=== PATIENT | male | born 1945 | race Caucasian/White ===

== ENCOUNTER 2017-07-24 19:49 | Emergency (ER) | payer MEDICARE, OTHER ==
[~2017-07-24] VITALS: Ht 172.7 cm; Wt 77.8 kg
[2017-07-24 19:52] VITALS: BP 165/86
== END 2017-07-24 21:51 | disposition home or self-care (01) ==
LOC: ER 19:49
DX: T83.091A Other mechanical complication of indwelling urethral catheter, initial encounter (principal); R33.9 Retention of urine, unspecified
CPT/HCPCS: 99284; A4315

== ENCOUNTER 2017-10-01 08:10 | Day surgery (SDC) | payer OTHER, MEDICARE ==
[~2017-10-01] VITALS: Ht 172.7 cm; Wt 76.9 kg
[2017-10-01] VITALS (13 sets, daily range): BP systolic 136–154; BP diastolic 71–92
[2017-10-01] MEDS ORDERED: normal saline 1000ml 1,000 ML IV PRN (09:05)
[2017-10-01] MEDS ORDERED: ATOR40TA3 PO (09:11)
[2017-10-01] MEDS ORDERED: OMEP40CA37 PO (09:11)
[2017-10-01] MEDS ORDERED: ASPI81TA52 PO (09:11)
[2017-10-01] MEDS ORDERED: LANTUS SQ (09:11)
[2017-10-01] MEDS ORDERED: INSU100C4 SQ (09:11)
[2017-10-01 09:19] LABS: BASOPHILS # (AUTO) 0.1 X10'3 (0-0.2); BASOPHILS % (AUTO) 0.7 % (0-1); EOSINOPHILS # (AUTO) 0.5 X10'3 (0-0.9); EOSINOPHILS % (AUTO) 6.5 % (0-6); HEMATOCRIT 39.3 % (42.0-52.0); HEMOGLOBIN 13.3 g/dl (14.0-17.9); LYMPHOCYTES % (AUTO) 25.7 % (21-51); MEAN CORPUSCULAR HEMOGLOBIN 28.9 PG (27.0-31.0); MEAN CORPUSCULAR HGB CONC 33.9 % (33.0-36.5); MEAN CORPUSCULAR VOLUME 85.3 FL (78-98); MEAN PLATELET VOLUME 9.3 FL (7.4-10.4); MONOCYTES # (AUTO) 0.5 X10'3 (0-0.9); MONOCYTES % (AUTO) 6.5 % (2-12); NEUTROPHILS # (AUTO) 4.7 X10'3 (1.8-7.7); NEUTROPHILS % (AUTO) 60.6 % (42-75); PLATELET COUNT 229 X10'3 (140-440); RED BLOOD COUNT 4.61 X10'6 (4.70-6.10); RED CELL DISTRIBUTION WIDTH 14.2 % (11.5-14.5); WHITE BLOOD COUNT 7.8 X10'3 (4.5-11.0)
[2017-10-01] MEDS ORDERED: LIDOcaine 1%/PF (10mg/ml) 5ml vial SQ ONE (10:20)
[2017-10-01] MEDS ORDERED: fentaNYL/PF 50MCG/1 ML 2ML syringe IV PRN (10:20)
[2017-10-01] MEDS ORDERED: midazolam 2 mg/2 ml injection IV PRN (10:20)
[2017-10-01] MEDS ORDERED: midazolam 2 mg/2 ml injection ONE (10:33)
[2017-10-01] MEDS ORDERED: fentaNYL/PF 50MCG/1 ML 2ML syringe ONE (10:33)
[2017-10-01] MEDS ORDERED: HYDROcodone/acetaminophen 5mg/325mg tablet PO PRN (11:15)
== END 2017-10-01 12:40 | disposition home or self-care (01) ==
LOC: SSTAY O 08:10
PROVIDERS: ATTEND Radiology Diagnostic Radiology
DX: R19.07 Generalized intra-abdominal and pelvic swelling, mass and lump (principal); E11.9 Type 2 diabetes mellitus without complications; E78.5 Hyperlipidemia, unspecified; K21.9 Gastro-esophageal reflux disease without esophagitis; Z90.49 Acquired absence of other specified parts of digestive tract; Z79.4 Long term (current) use of insulin; Z79.82 Long term (current) use of aspirin; Z87.891 Personal history of nicotine dependence; Z85.72 Personal history of non-Hodgkin lymphomas; Z79.899 Other long term (current) drug therapy; Z98.890 Other specified postprocedural states
CPT/HCPCS: 36415; 49180; 77012; 85025; 99152; 99153; J2250; J3010; J7030